=== PATIENT | male | born 1980 | race Caucasian/White ===

== ENCOUNTER 2016-04-20 18:27 | Emergency (ER) | payer MEDICAID ==
[~2016-04-20] VITALS: Ht 182.9 cm; Wt 81.6 kg
[2016-04-20 19:04] VITALS: BP 151/99
[2016-04-20] MEDS ORDERED: CEPHALEXIN MONOHYDRATE 500 MG CAPSULE PO ONE ×2 (19:30→19:35)
[2016-04-20] MEDS ORDERED: SULFAMETH/TRIMETH 800/160 MG 1 UDTAB TABLET PO ONE ×2 (19:30→19:35)
== END 2016-04-20 19:54 | disposition home or self-care (01) ==
LOC: ER 18:31
DX: L02.416 Cutaneous abscess of left lower limb (principal); L03.114 Cellulitis of left upper limb; L01.00 Impetigo, unspecified; Z59.0 Homelessness; F17.210 Nicotine dependence, cigarettes, uncomplicated; F10.20 Alcohol dependence, uncomplicated
CPT/HCPCS: A4606; Z7610

== ENCOUNTER 2016-08-23 16:07 | Emergency (ER) | payer MEDICAID ==
[~2016-08-23] VITALS: Ht 175.3 cm; Wt 90.7 kg
--- NOTE | 2016-08-23 16:14 | NUR ---
BBRA FROM STREETS FOR ALOC ETOH USE. NAD NOTED. 16G NOTED ON RIGHT AC WITH 500CC INFUSING, BP CURRENTLY AT 96/72. RR EVEN AND UNLABORED. PENDING MD SHAH.
--- NOTE | 2016-08-23 16:26 | NUR ---
DR TYLER AT BEDSIDE FOR EVAL.
[2016-08-23] MEDS ORDERED: IV NS 0.9% 1,000 ML BAG IV ONE (16:30)
[2016-08-23] MEDS ORDERED: IV SET PRIMARY 1 EA INFUS.SET MC ONE (16:40)
[2016-08-23] MEDS ORDERED: IV NS 0.9% 1,000 ML ONE (16:40)
--- NOTE | 2016-08-23 17:40 | NUR ---
BLOOD SUGAR 94. ERMD AWARE.
[2016-08-23 23:53] VITALS: BP 112/54
--- NOTE | 2016-08-23 23:54 | NUR ---
Patient discharged to home in stable condition. Written and verbal after care instructions given. Patient verbalizes understanding of instruction. IV removed. Catheter intact and site benign. Pressure and 4x4 applied to site. No bleeding noted. Patient given written and verbal discharge instructions. Patient verbalizes understanding of instructions. Patient is ambulatory with steady gait. Refuses offer of [facility] placement. Patient given list of available shelters in surrounding area.
== END 2016-08-23 23:55 | disposition home or self-care (01) ==
LOC: ER 16:09
DX: F10.129 Alcohol abuse with intoxication, unspecified (principal); G93.40 Encephalopathy, unspecified; F17.200 Nicotine dependence, unspecified, uncomplicated
CPT/HCPCS: 36415; 80305; 82962; 99284; A4606; G0480; J7030; Z7610